=== PATIENT | male | born 1940 | race Caucasian/White ===

== ENCOUNTER 2018-04-23 10:05 | Inpatient (IN) | payer OTHER ==
[2018-04-23 12:34] VITALS: BMI 19.7
--- NOTE | 2018-04-23 16:45 | HP ---
"Admission ROS [facility] - [facility] Chief Complaint: Here for rehab. Last drink 1 week ago. Allergies/Adverse Reactions: Allergies Allergy/AdvReac Type Severity Reaction Status Date / Time No Known Allergies Allergy Verified 04/23/18 12:59 History of Present Illness: Alcohol use since age 35. Drinks 1/2 pint 1-2x/week. States I want to stop forever and I need help. Seen in [facility] and stopped drinking 1 week ago. Was sober sober for 20 years and restarted drinking 3 years ago. Detox in past. Denies hx of blackouts or seizures. Hx. HTN - did not take medication today. Search Terms: Noel Akash, 1940 Search Date: 04/23/2018 04:42:15 PM The Drug Utilization Report below displays all of the controlled substance prescriptions, if any, that your patient has filled in the last twelve months. The information displayed on this report is compiled from pharmacy submissions to the Department, and accurately reflects the information as submitted by the pharmacies. This report was requested by: Hilda Carmona | Reference #: [id number] There are no results for the search terms that you entered. Exam Limitations: No Limitations - Ebola screening Have you traveled outside of the country in the last 21 days: No Have you had contact with anyone from an Ebola affected area: No Have you been sick,other than usual withdrawal symptoms: No Do you have a fever: No - Review of Systems Constitutional: No Symptoms Reported EENT: reports: No Symptoms Reported, Blurred Vision (Needs reading glasses.) Respiratory: reports: No Symptoms reported Cardiac: reports: No Symptoms Reported GI: reports: No Symptoms Reported : reports: No Symptoms Reported Musculoskeletal: reports: No Symptoms Reported Integumentary: reports: No Symptoms Reported Neuro: reports: No Symptoms reported Endocrine: reports: No Symptoms Reported Hematology: reports: No Symptoms Reported Psychiatric: reports: Judgement Intact, Mood/Affect Appropiate, other (Oriented to month and year. Unsure of date.) Patient History - PPD History Previous Implant?: Yes Documented Results: Negative w/o proof Implanted On Prior [facility] Admission?: No PPD to be Administered?: Yes - Smoking Cessation Smoking history: Never smoked Hx Chewing Tobacco Use: No Initiated information on smoking cessation: No - Substance & Tx. History Hx Alcohol Use: Yes Hx Substance Use: Yes Substance Use Type: Alcohol Hx Substance Use Treatment: Yes (detox) - Substances Abused Alcohol Route: Oral Frequency: 1-2 times per week Amount used: 1/2 [place] Age of first use: 35 Date of Last Use: 04/16/18 Admission Physical Exam [facility] - Vital Signs Vital Signs: Vital Signs - 24 hr 04/23/18 12:29 Temperature 96.4 F L Pulse Rate 64 Respiratory 18 Rate Blood Pressure 183/77 - Physical General Appearance: Yes: No Apparent Distress, Appropriately Dressed HEENTM: Yes: EOMI, Hearing grossly Normal, Normocephalic, Normal Voice, JENNY Respiratory: Yes: Chest Non-Tender, Lungs Clear, Normal Breath Sounds, No Respiratory Distress Neck: Yes: No masses,lesions,Nodules, Supple Breast: Yes: Breast Exam Deferred Cardiology: Yes: Regular Rhythm, Regular Rate, S1, S2 Abdominal: Yes: Normal Bowel Sounds, Non Tender, Flat, Soft Genitourinary: Yes: Within Normal Limits Back: Yes: Normal Inspection Extremities: Yes: Normal Capillary Refill, Normal Inspection, Normal Range of Motion, Non-Tender, Tremors (Mild tremors of hands upon extension) Neurological: Yes: java consultant II-XII NML intact, Alert, Motor Strength 5/5, Normal Mood /Affect Integumentary: Yes: Normal Color, Dry (Dry mucous membranes. Decreased skin turgor.), Warm Lymphatic: Yes: Within Normal Limits - Diagnostic (1) Alcohol dependence in remission Current Visit: Yes Status: Acute (2) Hypertension Current Visit: Yes Status: Acute Qualifiers: Hypertension type: essential hypertension Qualified Code(s): I10 - Essential (primary) hypertension (3) Dehydration Current Visit: Yes Status: Acute Cleared for Admission [facility] - Detox or Rehab Claeared for Rehab Admission: Yes [facility] Breath Alcohol Content Breath Alcohol Content: 0 Urine Drug Screen - Results Drug Screen Negative: Yes Inpatient Rehab Admission - Initial Determination Are CD services needed?: Yes Free of communicable disease: Yes Not in need of hospitalization: Yes - Rehab Admission Criteria Previous failed treatment: Yes Poor recovery environment: Yes Comorbidities: No Lacks judgement: No Patient is meeting Inpatient Rehab admission criteria:: Yes"
[2018-04-23] MEDS ORDERED: IBUPROFEN 400 MG TABLET (FP) PO PRN (17:04)
[2018-04-23] MEDS ORDERED: hydrOXYzine PAMOATE 25 MG CAPSULE (FP) PO PRN (17:04)
[2018-04-23] MEDS ORDERED: guaiFENesin/D-METHORPHAN HB 10 ML UNIT-DOSE CUPS PO PRN (17:04)
[2018-04-23] MEDS ORDERED: MENTHOL/PHENOL 1 EACH UD MM PRN (17:04)
[2018-04-23] MEDS ORDERED: MAGNESIUM CITRATE 300 ML BOTTLE PO PRN (17:04)
[2018-04-23] MEDS ORDERED: LOPERAMIDE HCL 2 MG CAPSULE PO PRN (17:04)
[2018-04-23] MEDS ORDERED: ACETAMINOPHEN 325 MG TABLET (FP) PO PRN (17:04)
[2018-04-23] MEDS ORDERED: MAG HYDROX/AL HYDROX/SIMETH 30 ML UNIT-DOSE CUP PO PRN (17:04)
[2018-04-23] MEDS ORDERED: MAGNESIUM HYDROX 2400MG/30ML ORAL SUSPENSION 30 ML CUP PO PRN (17:04)
[2018-04-23] MEDS ORDERED: P-EPHED 60MG/TRIPROLIDI 2.5MG TABLET PO PRN (17:04)
[2018-04-23] MEDS ORDERED: cloNIDine HCL 0.1 MG TABLET PO ONE (18:00)
[2018-04-23] MEDS ORDERED: TUBERCULIN PPD 5 TU/0.1ML VIAL ID ONE (19:33)
[2018-04-23] MEDS: THIAMINE HCL 100 MG TABLET (FP) PO SCH (21:30)
[2018-04-24 00:08] LABS: URINE APPEARANCE CLEAR; URINE BILIRUBIN NEGATIVE (<2.0 mg/dL); URINE COLOR YELLOW; URINE GLUCOSE (UA) NEGATIVE (NEGATIVE); URINE KETONE 1+ (NEGATIVE); URINE LEUK ESTERASE NEGATIVE (NEGATIVE); URINE NITRITE NEGATIVE (NEGATIVE); URINE PROTEIN NEGATIVE (NEGATIVE)
--- NOTE | 2018-04-24 09:59 | EKG ---
Test Reason : Blood Pressure : / mmHG Vent. Rate : 060 BPM Atrial Rate : 060 BPM P-R Int : 152 ms QRS Dur : 090 ms QT Int : 428 ms P-R-T Axes : 074 000 057 degrees QTc Int : 428 ms NORMAL SINUS RHYTHM POSSIBLE LEFT ATRIAL ENLARGEMENT NO PREVIOUS ECGS AVAILABLE Confirmed by MIKO OLIVIA MD ([id number]) on 04/24/2018 9:59:18 AM Referred By: Confirmed By:MIKO OLIVIA MD
[2018-04-24 10:03] LABS: HEMOGLOBIN 13.2 GM/dL (11.7-16.9); MCH 28.8 pg (25.7-33.7); MCHC 32.3 g/dl (32.0-35.9); MEAN CELL VOLUME 89.3 fl (80-96); MEAN PLT VOLUME 9.2 fl (7.5-11.1); PLATELET COUNT 242 K/MM3 (134-434); RDW 15.1 % (11.9-15.9)
[2018-04-24] MEDS: LISINOPRIL 10 MG TABLET (FP) PO SCH (10:09)
[2018-04-24] MEDS: PRENATAL VITAMINS W/ FOLIC ACID TABLET (FP) PO SCH (10:09)
[2018-04-24] MEDS: ATENOLOL 25 MG TABLET (FP) PO SCH (10:09)
[2018-04-24 10:21] LABS: ALBUMIN 3.9 g/dl (3.4-5.0); ANION GAP 9 MMOL/L (8-16); BLOOD UREA NITROGEN 11 mg/dL (7-18); CHLORIDE 101 mmol/L (98-107); CO2 29 mmol/L (21-32); GLUCOSE,RANDOM 236 mg/dL (74-106); POTASSIUM 4.6 mmol/L (3.5-5.1); SGPT/ALT 39 U/L (12-78); SODIUM 139 mmol/L (136-145)
[2018-04-24 10:23] LABS: ALK PHOS 76 U/L (45-117); BILIRUBIN,TOTAL 1.6 mg/dL (0.2-1.0); SGOT/AST 50 U/L (15-37); TOT PROT 7.3 g/dl (6.4-8.2)
--- NOTE | 2018-04-24 15:05 | HP ---
Psychiatrist Admission - Data Date of interview: 04/24/18 Admission source: [facility] Identifying data: This is the first admission to [address] [place] [address] this 78 years old H male ,resides alone,supported by [facility]. Medical History: Significant for HTN,H/O bleeding ulcer. Psychiatric History: Denies previous psychiatric history,denies history of psychiatric hospitalizaions,no suicidal history. Physical/Sexual Abuse/Trauma History: denies Vital Signs: Vital Signs - 24 hr 04/24/18 04/24/18 04/24/18 00:30 03:30 07:05 Temperature 97.6 F Pulse Rate 65 Respiratory 18 18 18 Rate Blood Pressure 157/86 Allergies/Adverse Reactions: Allergies Allergy/AdvReac Type Severity Reaction Status Date / Time No Known Allergies Allergy Verified 04/23/18 12:59 Date of last physical exam: 04/23/18 Concur with the findings of this exam: Yes - Substance Abuse/Tx History Hx Alcohol Use: Yes (reports drinking since 18 yo ) Hx Substance Use: No Substance Use Type: Alcohol Hx Substance Use Treatment: Yes (this is his first inpatient rehabilitation treatment) Mental Status Exam - Mental Status Exam Alert and Oriented to: Time, Place, Person Cognitive Function: Grossly Intact Patient Appearance: Well Groomed Mood: Euthymic Affect: Mood Congruent Patient Behavior: Appropriate, Cooperative Speech Pattern: Clear Voice Loudness: Normal Thought Process: Goal Oriented Thought Disorder: Not Present Hallucinations: Denies Suicidal Ideation: Denies Homicidal Ideation: Denies Insight/Judgement: Fair Sleep: Fair Appetite: Good Muscle strength/Tone: Normal Gait/Station: Normal Psychiatric Findings - Problem List ([place] 1, 2,3) (1) Hypertension Current Visit: Yes Status: Chronic Qualifiers: Hypertension type: essential hypertension Qualified Code(s): I10 - Essential (primary) hypertension (2) Alcohol dependence Current Visit: Yes Status: Chronic - Initial Treatment Plan Initial Treatment Plan: Will monitor progress.
[2018-04-24] MEDS: THIAMINE HCL 100 MG TABLET (FP) PO SCH (22:28)
[2018-04-25] MEDS: LISINOPRIL 10 MG TABLET (FP) PO SCH (09:50)
[2018-04-25] MEDS: PRENATAL VITAMINS W/ FOLIC ACID TABLET (FP) PO SCH (09:50)
[2018-04-25] MEDS: ATENOLOL 25 MG TABLET (FP) PO SCH (09:50)
--- NOTE | 2018-04-25 13:00 | PN ---
[facility] Progress Note Note: Vital Signs Temperature 97.5 F L 04/25/18 07:04 Pulse Rate 59 L 04/25/18 10:00 Respiratory Rate 18 04/25/18 07:04 Blood Pressure 125/68 04/25/18 10:00 O2 Sat by Pulse Oximetry (%) Laboratory Last Values WBC 5.0 K/mm3 (4.0-10.0) 04/24/18 06:00 RBC 4.60 M/mm3 (4.00-5.60) 04/24/18 06:00 Hgb 13.2 GM/dL (11.7-16.9) 04/24/18 06:00 Hct 41.0 % (35.4-49) 04/24/18 06:00 MCV 89.3 fl (80-96) 04/24/18 06:00 MCH 28.8 pg (25.7-33.7) 04/24/18 06:00 MCHC 32.3 g/dl (32.0-35.9) 04/24/18 06:00 RDW 15.1 % (11.9-15.9) 04/24/18 06:00 Plt Count 242 K/MM3 (134-434) 04/24/18 06:00 MPV 9.2 fl (7.5-11.1) 04/24/18 06:00 Sodium 139 mmol/L (136-145) 04/24/18 06:00 Potassium 4.6 mmol/L (3.5-5.1) 04/24/18 06:00 Chloride 101 mmol/L (98-107) 04/24/18 06:00 Carbon Dioxide 29 mmol/L (21-32) 04/24/18 06:00 Anion Gap 9 MMOL/L (8-16) 04/24/18 06:00 BUN 11 mg/dL (7-18) 04/24/18 06:00 Creatinine 1.0 mg/dL (0.7-1.3) 04/24/18 06:00 Creat Clearance w eGFR > 60 (>60) 04/24/18 06:00 Random Glucose 236 mg/dL (74-106) H 04/24/18 06:00 Calcium 9.0 mg/dL (8.5-10.1) 04/24/18 06:00 Total Bilirubin 1.6 mg/dL (0.2-1.0) H 04/24/18 06:00 AST 50 U/L (15-37) H 04/24/18 06:00 ALT 39 U/L (12-78) 04/24/18 06:00 Alkaline Phosphatase 76 U/L (45-117) 04/24/18 06:00 Total Protein 7.3 g/dl (6.4-8.2) 04/24/18 06:00 Albumin 3.9 g/dl (3.4-5.0) 04/24/18 06:00 Urine Color Yellow 04/23/18 23:06 Urine Appearance Clear 04/23/18 23:06 Urine pH 6.0 (5.0-8.0) 04/23/18 23:06 Ur Specific [place] 1.014 (1.001-1.035) 04/23/18 23:06 Urine Protein Negative (NEGATIVE) 04/23/18 23:06 Urine Glucose (UA) Negative (NEGATIVE) 04/23/18 23:06 Urine Ketones 1+ (NEGATIVE) H 04/23/18 23:06 Urine Blood Negative (NEGATIVE) 04/23/18 23:06 Urine Nitrite Negative (NEGATIVE) 04/23/18 23:06 Urine Bilirubin Negative (<2.0 mg/dL) 04/23/18 23:06 Urine Urobilinogen 2.0 mg/dL (0.2-1.0) 04/23/18 23:06 Ur Leukocyte Esterase Negative (NEGATIVE) 04/23/18 23:06 RPR Titer Nonreactive (NONREACTIVE) 04/24/18 06:00 elevated glucose change ensure tid to glucerna tid daily bgm NCS and low sodium diet increase fluids continue to monitor
[2018-04-25] MEDS: THIAMINE HCL 100 MG TABLET (FP) PO SCH (22:06)
[2018-04-25] MEDS: MELATONIN 5 MG TABLETS PO PRN (22:06)
[2018-04-26] MEDS: LISINOPRIL 10 MG TABLET (FP) PO SCH (09:52)
[2018-04-26] MEDS: PRENATAL VITAMINS W/ FOLIC ACID TABLET (FP) PO SCH (09:52)
[2018-04-26] MEDS: ATENOLOL 25 MG TABLET (FP) PO SCH (09:53)
[2018-04-26] MEDS: THIAMINE HCL 100 MG TABLET (FP) PO SCH (21:34)
[2018-04-27] MEDS: LISINOPRIL 10 MG TABLET (FP) PO SCH (10:06)
[2018-04-27] MEDS: PRENATAL VITAMINS W/ FOLIC ACID TABLET (FP) PO SCH (10:06)
[2018-04-27] MEDS: ATENOLOL 25 MG TABLET (FP) PO SCH (10:07)
[2018-04-27] MEDS: THIAMINE HCL 100 MG TABLET (FP) PO SCH (22:17)
[2018-04-28] MEDS: ATENOLOL 25 MG TABLET (FP) PO SCH (10:25)
[2018-04-28] MEDS: LISINOPRIL 10 MG TABLET (FP) PO SCH (10:25)
[2018-04-28] MEDS: PRENATAL VITAMINS W/ FOLIC ACID TABLET (FP) PO SCH (10:25)
[2018-04-28] MEDS: MELATONIN 5 MG TABLETS PO PRN (21:58)
[2018-04-28] MEDS: THIAMINE HCL 100 MG TABLET (FP) PO SCH (21:58)
[2018-04-29] MEDS: PRENATAL VITAMINS W/ FOLIC ACID TABLET (FP) PO SCH (10:06)
[2018-04-29] MEDS: LISINOPRIL 10 MG TABLET (FP) PO SCH (10:06)
[2018-04-29] MEDS: ATENOLOL 25 MG TABLET (FP) PO SCH (10:06)
[2018-04-29] MEDS: THIAMINE HCL 100 MG TABLET (FP) PO SCH (22:35)
[2018-04-30] MEDS: ATENOLOL 25 MG TABLET (FP) PO SCH (10:04)
[2018-04-30] MEDS: PRENATAL VITAMINS W/ FOLIC ACID TABLET (FP) PO SCH (10:04)
[2018-04-30] MEDS: LISINOPRIL 10 MG TABLET (FP) PO SCH (10:04)
[2018-04-30] MEDS: THIAMINE HCL 100 MG TABLET (FP) PO SCH (21:48)
[2018-05-01] MEDS: LISINOPRIL 10 MG TABLET (FP) PO SCH (10:08)
[2018-05-01] MEDS: ATENOLOL 25 MG TABLET (FP) PO SCH (10:08)
[2018-05-01] MEDS: PRENATAL VITAMINS W/ FOLIC ACID TABLET (FP) PO SCH (10:08)
[2018-05-01] MEDS: THIAMINE HCL 100 MG TABLET (FP) PO SCH (22:09)
[2018-05-02] MEDS: ATENOLOL 25 MG TABLET (FP) PO SCH (10:03)
[2018-05-02] MEDS: PRENATAL VITAMINS W/ FOLIC ACID TABLET (FP) PO SCH (10:03)
[2018-05-02] MEDS: LISINOPRIL 10 MG TABLET (FP) PO SCH (10:03)
[2018-05-02] MEDS: THIAMINE HCL 100 MG TABLET (FP) PO SCH (21:46)
[2018-05-03] MEDS: LISINOPRIL 10 MG TABLET (FP) PO SCH (09:50)
[2018-05-03] MEDS: ATENOLOL 25 MG TABLET (FP) PO SCH (09:50)
[2018-05-03] MEDS: PRENATAL VITAMINS W/ FOLIC ACID TABLET (FP) PO SCH (09:50)
[2018-05-03] MEDS: THIAMINE HCL 100 MG TABLET (FP) PO SCH (22:09)
[2018-05-04] MEDS: LISINOPRIL 10 MG TABLET (FP) PO SCH (09:46)
[2018-05-04] MEDS: ATENOLOL 25 MG TABLET (FP) PO SCH (09:46)
[2018-05-04] MEDS: PRENATAL VITAMINS W/ FOLIC ACID TABLET (FP) PO SCH (09:46)
[2018-05-04] MEDS: MELATONIN 5 MG TABLETS PO PRN (21:51)
[2018-05-04] MEDS: THIAMINE HCL 100 MG TABLET (FP) PO SCH (21:51)
[2018-05-05] MEDS: PRENATAL VITAMINS W/ FOLIC ACID TABLET (FP) PO SCH (09:52)
[2018-05-05] MEDS: ATENOLOL 25 MG TABLET (FP) PO SCH (09:52)
[2018-05-05] MEDS: LISINOPRIL 10 MG TABLET (FP) PO SCH (09:52)
[2018-05-05] MEDS: THIAMINE HCL 100 MG TABLET (FP) PO SCH (21:25)
[2018-05-05] MEDS: MELATONIN 5 MG TABLETS PO PRN (21:25)
[2018-05-06] MEDS: ATENOLOL 25 MG TABLET (FP) PO SCH (09:30)
[2018-05-06] MEDS: LISINOPRIL 10 MG TABLET (FP) PO SCH (09:30)
[2018-05-06] MEDS: PRENATAL VITAMINS W/ FOLIC ACID TABLET (FP) PO SCH (09:31)
[2018-05-06] MEDS: THIAMINE HCL 100 MG TABLET (FP) PO SCH (22:04)
[2018-05-06] MEDS: MELATONIN 5 MG TABLETS PO PRN (22:04)
[2018-05-07] MEDS: LISINOPRIL 10 MG TABLET (FP) PO SCH (09:53)
[2018-05-07] MEDS: PRENATAL VITAMINS W/ FOLIC ACID TABLET (FP) PO SCH (09:53)
[2018-05-07] MEDS: ATENOLOL 25 MG TABLET (FP) PO SCH (09:53)
--- NOTE | 2018-05-07 15:12 | PN ---
Psychiatric Progress Note Vital Signs: Vital Signs Period Temp Pulse Resp BP Sys/Cantrell Pulse Ox Last 24 Hr 97.5 F 57-60 18-19 124-157/66-86 Date of Session: 05/07/18 Chief Complaint:: Discharge Note HPI: Patient addressing Alcohol Dependence ROS: HTN Current Medications: Active Medications Generic Name Dose Route Start Last Admin Trade Name Freq PRN Reason Stop Dose Admin Acetaminophen 650 mg 04/23/18 17:04 Tylenol - PO Q4H PRN FEVER Al Hydroxide/Mg Hydroxide 30 ml 04/23/18 17:04 Mylanta Oral Suspension - PO Q6H PRN DYSPEPSIA Atenolol 25 mg 04/24/18 10:00 05/07/18 09:53 Tenormin - PO 25 mg DAILY BECKY Administration Eucalyptus/Menthol/Phenol/Sorbitol 1 each 04/23/18 17:04 Cepastat Lozenge - MM Q4H PRN SORE THROAT Guaifenesin 10 ml 04/23/18 17:04 Robitussin Dm - PO Q6H PRN COUGH Hydroxyzine Pamoate 25 mg 04/23/18 17:04 Vistaril - PO Q4H PRN AGITATION Ibuprofen 400 mg 04/23/18 17:04 Motrin - PO Q6H PRN Pain level 4-6 Lisinopril 10 mg 04/24/18 10:00 05/07/18 09:53 Prinivil PO 10 mg DAILY BECKY Administration Loperamide HCl 4 mg 04/23/18 17:04 Imodium - PO Q6H PRN DIARRHEA Magnesium Citrate 300 ml 04/23/18 17:04 Citroma - PO Q48H PRN CONSTIPATION Magnesium Hydroxide 30 ml 04/23/18 17:04 Milk Of Magnesia - PO DAILY PRN CONSTIPATION Melatonin 5 mg 04/23/18 22:00 05/06/18 22:04 Melatonin PO 5 mg HS PRN Administration INSOMNIA Multivit/Folic Acid/Iron 1 tab 04/24/18 10:00 05/07/18 09:53 Vitamins ([facility]) - PO 1 tab DAILY BECKY Administration Pseudoephedrine/Triprolidine 1 combo 04/23/18 17:04 Actifed - PO TID PRN NASAL CONGESTION Thiamine HCl 100 mg 04/23/18 22:00 05/06/18 22:04 Vitamin B1 - PO 100 mg HS BECKY Administration Current Side Effect: No Lab tests ordered: Yes Lab tests reviewed: Yes Provider note:: Patient will complete this program on 05/08/18. He has met his treatment goals and vitor henriquez to address his issues in outpatient treatment at the [facility]. Told advertising copywriter that from his participation in this program, he has learned the importance of making meetings and have a sponsor. He is stable for discharge on 05/08/18 Total face to face time:: 35 Mental Status Exam - Mental Status Exam Alert and Oriented to: Time, Place, Person Cognitive Function: Fair Patient Appearance: Well Groomed Mood: Hopeful, Euthymic Affect: Appropriate Patient Behavior: Cooperative Speech Pattern: Clear Voice Loudness: Normal Thought Process: Intact, Goal Oriented Thought Disorder: Not Present Hallucinations: Denies Suicidal Ideation: Denies Homicidal Ideation: Denies Insight/Judgement: Fair Sleep: Fair Appetite: Good Muscle strength/Tone: Normal Gait/Station: Normal Psychiatric Treatment Plan - Problem List (1) Alcohol dependence Current Visit: Yes (2) Hypertension Current Visit: Yes Qualifiers: Hypertension type: essential hypertension Qualified Code(s): I10 - Essential (primary) hypertension Initial treatment plan: Patient will be discharged tomorrow and referred to the [facility] for [facility] treatment
--- NOTE | 2018-05-07 15:42 | PN ---
S Progress Note Note: Vital Signs Temperature 97.5 F L 05/07/18 06:34 Pulse Rate 60 05/07/18 10:00 Respiratory Rate 19 05/07/18 10:00 Blood Pressure 124/66 05/07/18 10:00 O2 Sat by Pulse Oximetry (%) Patient medically stable. Patient will complete this program on 05/08/18. Patient follow up with outpatient treatment at the [facility]. Patient to also follow up with primary care provider in 1 - 2 weeks.
[2018-05-07] MEDS: MELATONIN 5 MG TABLETS PO PRN (21:25)
[2018-05-07] MEDS: THIAMINE HCL 100 MG TABLET (FP) PO SCH (21:25)
[2018-05-08 06:46] VITALS: TEMP 97.3
[2018-05-08 10:04] VITALS: BP 157/84; PULSE 67
[2018-05-08] MEDS: LISINOPRIL 10 MG TABLET (FP) PO SCH (10:28)
[2018-05-08] MEDS: PRENATAL VITAMINS W/ FOLIC ACID TABLET (FP) PO SCH (10:28)
[2018-05-08] MEDS: ATENOLOL 25 MG TABLET (FP) PO SCH (10:29)
== END 2018-05-08 10:35 | disposition home or self-care (01) | DRG 895 ==
LOC: YASAS 10:05 → Y3W 17:34
PROVIDERS: ADMIT Psychiatry & Neurology Psychiatry; ATTEND Psychiatry & Neurology Psychiatry
PROC: HZ42ZZZ Group Counseling for Substance Abuse Treatment, Cognitive-Behavioral (ICD-10-PCS; principal; 2018-04-23)
DX: F10.20 Alcohol dependence, uncomplicated (principal); I10 Essential (primary) hypertension; E86.0 Dehydration
CPT/HCPCS: 36415; 80053; 81003; 82962; 85027; 86593; 93005; 93010; J0735

== ENCOUNTER 2019-01-28 09:35 | Inpatient (IN) | payer OTHER ==
[2019-01-28 10:23] VITALS: BMI 20.7
--- NOTE | 2019-01-28 11:32 | HP ---
CIWA Score - Admission Criteria [facility] Guidelines: Admission for Medically Managed Detox: Requires at least one of the followin. CIWA greater than 12 2. Seizures within the past 24 hours 3. Delirium tremens within the past 24 hours 4. Hallucinations within the past 24 hours 5. Acute intervention needed for co occurring medical disorder 6. Acute intervention needed for co occurring psychiatric disorder 7. Severe withdrawal that cannot be handled at a lower level of care (continued vomiting, continued diarrhea, abnormal vital signs) requiring intravenous medication and/or fluids 8. Admission ROS [facility] - HPI Chief Complaint: i need help to stop drinking alcohol Allergies/Adverse Reactions: Allergies Allergy/AdvReac Type Severity Reaction Status Date / Time No Known Allergies Allergy Verified 01/28/19 10:14 History of Present Illness: this 78 years old male with alcohol dependence,withdrawal symptom, seen in [facility] last night,receiving medication in [facility] history of hypertension longest sobriety 2 years plan for relocation after rehab history of bleeding peptic ulcer at age of 21 years Exam Limitations: No Limitations - Ebola screening Have you traveled outside of the country in the last 21 days: No (N) Have you had contact with anyone from an Ebola affected area: No Do you have a fever: No - Review of Systems Constitutional: No Symptoms Reported EENT: reports: Nose Congestion Respiratory: reports: No Symptoms reported GI: reports: No Symptoms Reported : reports: No Symptoms Reported Musculoskeletal: reports: No Symptoms Reported Neuro: reports: No Symptoms reported Endocrine: reports: No Symptoms Reported Hematology: reports: No Symptoms Reported Psychiatric: reports: No Sypmtoms Reported, Judgement Intact, Mood/Affect Appropiate, Orientated x3 Other Systems: Reviewed and Negative Patient History - Patient Medical History Hx Asthma: No Hx Chronic Obstructive Pulmonary Disease (COPD): No Hx Cancer: No Hx Cardiac Disorders: No Hx Congestive Heart Failure: No Hx Hypertension: Yes (on meds) Hx Pacemaker: No HX Cerebrovascular Accident: No Hx Seizures: No Hx Dementia: No Hx Diabetes: No Hx Gastrointestinal Disorders: No Hx Liver Disease: No Hx Genitourinary Disorders: No Hx Sexually Transmitted Disorders: No Hx Renal Disease (ESRD): No Hx Thyroid Disease: No Hx Human Immunodeficiency Virus (HIV): No (last 09/05 negative) Hx Hepatitis C: No Hx Depression: No Hx Suicide Attempt: No Hx Bipolar Disorder: No Hx Schizophrenia: No Other Medical History: no suicidal,no homicidal - Patient Surgical History Past Surgical History: Yes Hx Neurologic Surgery: No Hx Cataract Extraction: No Hx Cardiac Surgery: No Hx Lung Surgery: No Hx Breast Surgery: No Hx Breast Biopsy: No Hx Abdominal Surgery: No Hx Appendectomy: No Hx Cholecystectomy: No Hx Genitourinary Surgery: No Hx Section: No Hx Orthopedic Surgery: No Other Surgical History: bleding peptic ulcer at age of 21 years Anesthesia Reaction: No - PPD History Previous Implant?: Yes Documented Results: Negative w/proof Date: 04/26/18 PPD to be Administered?: No - Smoking Cessation Smoking history: Never smoked Hx Chewing Tobacco Use: No - Substance & Tx. History Hx Alcohol Use: Yes Hx Substance Use: No Substance Use Type: Alcohol Hx Substance Use Treatment: Yes ([facility] rehab 04/23/18 to 05/08/18) - Substances abused Alcohol Substance route: Oral Frequency: 1-2 times per week Amount used: 1/2 pint of vodka Age of first use: 26 Date of last use: 01/26/19 Family Disease History - Family Disease History Family Disease History: Diabetes: Father (), Mother () Admission Physical Exam S - Vital Signs Vital Signs: Vital Signs - 24 hr 01/28/19 01/28/19 10:09 10:36 Temperature 96.8 F L 96.8 F L Pulse Rate 63 63 Respiratory 16 16 Rate Blood Pressure 148/64 148/64 - Physical General Appearance: Yes: Within Normal Limits HEENTM: Yes: Normocephalic, JENNY, Pharynx Normal Respiratory: Yes: Lungs Clear, Normal Breath Sounds, No Respiratory Distress Neck: Yes: Within Normal Limits Breast: Yes: Within Normal Limits Cardiology: Yes: Within Normal Limits, Regular Rhythm, Regular Rate, S1, S2 Abdominal: Yes: Within Normal Limits, Normal Bowel Sounds, Flat, Soft, Surgical Scar (surgical scar right pramedian) Genitourinary: Yes: Within Normal Limits Back: Yes: Within Normal Limits Musculoskeletal: Yes: Within Normal Limits Extremities: Yes: Within Normal Limits Neurological: Yes: carbonizer II-XII NML intact, Fully Oriented, Alert, Motor Strength 5/5 Integumentary: Yes: Within Normal Limits Lymphatic: Yes: Within Normal Limits - Diagnostic (1) Alcohol dependence Current Visit: No Status: Acute (2) Hypertension Current Visit: No Status: Chronic Qualifiers: Hypertension type: essential hypertension Qualified Code(s): I10 - Essential (primary) hypertension (3) H/O abdominal surgery Current Visit: Yes Status: Acute Cleared for Admission [facility] - Detox or Rehab Claeared for Rehab Admission: Yes Breathalyzer - Breathalyzer Breathalyzer: 0 Urine Drug Screen - Test Device Lot number: [id number] Expiration date: 10/15/20 - Results Drug screen NEGATIVE: No Urine drug screen results: BZO-Benzodiazepines Inpatient Rehab Admission - Rehab Decision to Admit Inpatient rehab admission?: Yes - Initial Determination Are CD services needed?: Yes Free of communicable disease: Yes Not in need of hospitalization: Yes - Rehab Admission Criteria Previous failed treatment: Yes Poor recovery environment: Yes Comorbidities: Yes Lacks judgement: No Patient is meeting Inpatient Rehab admission criteria:: Yes
[2019-01-28] MEDS ORDERED: MAGNESIUM CITRATE 300 ML BOTTLE PO PRN (11:50)
[2019-01-28] MEDS ORDERED: MAGNESIUM HYDROX 2400MG/30ML ORAL SUSPENSION 30 ML CUP PO PRN (11:50)
[2019-01-28] MEDS ORDERED: MENTHOL/PHENOL 1 EACH UD MM PRN (11:50)
[2019-01-28] MEDS ORDERED: MAG HYDROX/AL HYDROX/SIMETH 30 ML UNIT-DOSE CUP PO PRN (11:50)
[2019-01-28] MEDS ORDERED: LOPERAMIDE HCL 2 MG CAPSULE PO PRN (11:50)
[2019-01-28] MEDS ORDERED: IBUPROFEN 400 MG TABLET (FP) PO PRN (11:50)
[2019-01-28] MEDS ORDERED: ACETAMINOPHEN 325 MG TABLET (FP) PO PRN (11:50)
[2019-01-28] MEDS ORDERED: hydrOXYzine PAMOATE 25 MG CAPSULE (FP) PO PRN (11:50)
[2019-01-28] MEDS ORDERED: P-EPHED 60MG/TRIPROLIDI 2.5MG TABLET PO PRN (11:50)
[2019-01-28] MEDS ORDERED: guaiFENesin 200 MG/10 ML 10 ML UNIT-DOSE CUPS PO PRN (11:50)
[2019-01-28 14:19] LABS: ALBUMIN 3.8 g/dl (3.4-5.0); BILIRUBIN,TOTAL 0.3 mg/dL (0.2-1); BLOOD UREA NITROGEN 19.4 mg/dL (7-18); CREATININE 0.9 mg/dL (0.55-1.3); POTASSIUM 4.3 mmol/L (3.5-5.1)
[2019-01-28 14:42] LABS: HEMATOCRIT 37.7 % (35.4-49); HEMOGLOBIN 12.4 GM/dL (11.7-16.9); MCH 30.4 pg (25.7-33.7); MEAN CELL VOLUME 92.1 fl (80-96); MEAN PLT VOLUME 9.1 fl (7.5-11.1); RDW 14.1 % (11.9-15.9); WHITE BLOOD COUNT 5.6 K/mm3 (4.0-10.0)
[2019-01-28 15:05] LABS: PLATELET COUNT 212 K/MM3 (134-434)
[2019-01-28 18:06] LABS: PH,URINE 5.5 (5.0-8.0); URINE APPEARANCE CLEAR; URINE BILIRUBIN NEGATIVE (NEGATIVE); URINE COLOR YELLOW; URINE GLUCOSE (UA) NEGATIVE (NEGATIVE); URINE KETONE NEGATIVE (NEGATIVE); URINE LEUK ESTERASE NEGATIVE (NEGATIVE); URINE NITRITE NEGATIVE (NEGATIVE); URINE PROTEIN NEGATIVE (NEGATIVE); URINE UROBILINOGEN 0.2 mg/dL (0.2-1.0)
[2019-01-28] MEDS: THIAMINE HCL 100 MG TABLET (FP) PO SCH (21:58)
[2019-01-29] MEDS: PRENATAL VITAMINS W/ FOLIC ACID TABLET (FP) PO SCH (10:20)
[2019-01-29] MEDS ORDERED: PT OWN MED DRAWER 7, Y5N ONE (20:28)
[2019-01-29] MEDS: THIAMINE HCL 100 MG TABLET (FP) PO SCH (21:34)
[2019-01-30] MEDS ORDERED: PT OWN MED DRAWER 7, Y5N ONE (08:32)
[2019-01-30] MEDS: LISINOPRIL 10 MG TABLET (FP) PO SCH (09:14)
[2019-01-30] MEDS: ATENOLOL 25 MG TABLET (FP) PO SCH (09:14)
[2019-01-30] MEDS: PRENATAL VITAMINS W/ FOLIC ACID TABLET (FP) PO SCH (09:14)
[2019-01-30] MEDS: THIAMINE HCL 100 MG TABLET (FP) PO SCH (21:33)
[2019-01-30] MEDS: MELATONIN 5 MG TABLETS PO PRN (21:33)
[2019-01-31] MEDS ORDERED: PT OWN MED DRAWER 7, Y5N ONE (08:29)
[2019-01-31] MEDS: LISINOPRIL 10 MG TABLET (FP) PO SCH (09:29)
[2019-01-31] MEDS: PRENATAL VITAMINS W/ FOLIC ACID TABLET (FP) PO SCH (09:29)
[2019-01-31] MEDS: ATENOLOL 25 MG TABLET (FP) PO SCH (09:29)
[2019-01-31] MEDS: THIAMINE HCL 100 MG TABLET (FP) PO SCH (21:24)
[2019-02-01] MEDS ORDERED: PT OWN MED DRAWER 7, Y5N ONE (08:48)
[2019-02-01] MEDS: PRENATAL VITAMINS W/ FOLIC ACID TABLET (FP) PO SCH (09:53)
[2019-02-01] MEDS: LISINOPRIL 10 MG TABLET (FP) PO SCH (09:53)
[2019-02-01] MEDS: ATENOLOL 25 MG TABLET (FP) PO SCH (09:53)
--- NOTE | 2019-02-01 11:10 | PN ---
[facility] Progress Note Note: PATIENT SEEN FOR ELEVATED BP. DENIES HEADACHE, CHEST PAIN AND SOB AT THIS TIME. CURRENTLY ON ATENOLOL AND LISINOPRIL FOR HTN. Laboratory Tests 01/28/19 01/28/19 01/28/19 12:00 12:00 12:00 WBC 5.6 RBC 4.10 Hgb 12.4 Hct 37.7 MCV 92.1 MCH 30.4 MCHC 33.0 RDW 14.1 Plt Count 212 MPV 9.1 Sodium 143 Potassium 4.3 Chloride 109 H Carbon Dioxide 31 Anion Gap 3 L BUN 19.4 H Creatinine 0.9 Est GFR (CKD-EPI)AfAm 94.48 Est GFR (CKD-EPI)NonAf 81.52 Random Glucose 111 H Calcium 9.0 Total Bilirubin 0.3 AST 30 ALT 31 Alkaline Phosphatase 65 Total Protein 7.0 Albumin 3.8 Urine Color Urine Appearance Urine pH Ur Specific [place] Urine Protein Urine Glucose (UA) Urine Ketones Urine Blood Urine Nitrite Urine Bilirubin Urine Urobilinogen Ur Leukocyte Esterase RPR Titer Nonreactive 01/28/19 13:00 WBC RBC Hgb Hct MCV MCH MCHC RDW Plt Count MPV Sodium Potassium Chloride Carbon Dioxide Anion Gap BUN Creatinine Est GFR (CKD-EPI)AfAm Est GFR (CKD-EPI)NonAf Random Glucose Calcium Total Bilirubin AST ALT Alkaline Phosphatase Total Protein Albumin Urine Color Yellow Urine Appearance Clear Urine pH 5.5 Ur Specific [place] 1.013 Urine Protein Negative Urine Glucose (UA) Negative Urine Ketones Negative Urine Blood Negative Urine Nitrite Negative Urine Bilirubin Negative Urine Urobilinogen 0.2 Ur Leukocyte Esterase Negative RPR Titer Vital Signs Temperature 98.1 F 02/01/19 06:48 Pulse Rate 65 02/01/19 09:30 Respiratory Rate 18 02/01/19 09:30 Blood Pressure 158/73 02/01/19 09:30 O2 Sat by Pulse Oximetry (%) PE: ALERT AND ORIENTED X 3 SKIN WARM AND DRY +PERRLA,EOMS INTACT BL CAR S1S2 RESP CTA BL EXT FULL ROM, NO VISIBLE EDEMA A/P: HX OF HTN ELEVATED BP WILL INCREASE LISINOPRIL TO 20MG DAILY JB DIET MONITOR CLINICALLY
[2019-02-01] MEDS: THIAMINE HCL 100 MG TABLET (FP) PO SCH (21:34)
[2019-02-02] MEDS: PRENATAL VITAMINS W/ FOLIC ACID TABLET (FP) PO SCH (09:39)
[2019-02-02] MEDS: ATENOLOL 25 MG TABLET (FP) PO SCH (09:39)
[2019-02-02] MEDS: LISINOPRIL 20 MG TABLET (FP) PO SCH (09:40)
[2019-02-02] MEDS: THIAMINE HCL 100 MG TABLET (FP) PO SCH (21:25)
[2019-02-03] MEDS: LISINOPRIL 20 MG TABLET (FP) PO SCH (10:11)
[2019-02-03] MEDS: PRENATAL VITAMINS W/ FOLIC ACID TABLET (FP) PO SCH (10:11)
[2019-02-03] MEDS: ATENOLOL 25 MG TABLET (FP) PO SCH (10:11)
[2019-02-03] MEDS: THIAMINE HCL 100 MG TABLET (FP) PO SCH (21:24)
[2019-02-03] MEDS: MELATONIN 5 MG TABLETS PO PRN (21:25)
[2019-02-04] MEDS: ATENOLOL 25 MG TABLET (FP) PO SCH (10:19)
[2019-02-04] MEDS: LISINOPRIL 20 MG TABLET (FP) PO SCH (10:19)
[2019-02-04] MEDS: PRENATAL VITAMINS W/ FOLIC ACID TABLET (FP) PO SCH (10:19)
[2019-02-04] MEDS: MELATONIN 5 MG TABLETS PO PRN (21:44)
[2019-02-04] MEDS: THIAMINE HCL 100 MG TABLET (FP) PO SCH (21:44)
[2019-02-05] MEDS: LISINOPRIL 20 MG TABLET (FP) PO SCH (09:59)
[2019-02-05] MEDS: ATENOLOL 25 MG TABLET (FP) PO SCH (09:59)
[2019-02-05] MEDS: PRENATAL VITAMINS W/ FOLIC ACID TABLET (FP) PO SCH (09:59)
[2019-02-05] MEDS: THIAMINE HCL 100 MG TABLET (FP) PO SCH (21:31)
[2019-02-06] MEDS ORDERED: cloNIDine HCL 0.1 MG TABLET PO ONE (06:29)
--- NOTE | 2019-02-06 06:32 | PN ---
[facility] Progress Note Note: Patient's blood pressure this morning is B/P 193/91. Patient is asymptomatic Vital Signs Temperature 97.6 F 02/06/19 06:29 Pulse Rate 57 L 02/06/19 06:29 Respiratory Rate 18 02/06/19 06:29 Blood Pressure 193/91 H 02/06/19 06:29 O2 Sat by Pulse Oximetry (%) Action: Clonidine 0.1mg tablet oral ordered stat
[2019-02-06] MEDS: ATENOLOL 25 MG TABLET (FP) PO SCH (10:13)
[2019-02-06] MEDS: PRENATAL VITAMINS W/ FOLIC ACID TABLET (FP) PO SCH (10:13)
[2019-02-06] MEDS: LISINOPRIL 20 MG TABLET (FP) PO SCH (10:13)
[2019-02-06] MEDS: THIAMINE HCL 100 MG TABLET (FP) PO SCH (21:25)
[2019-02-07] MEDS: ATENOLOL 25 MG TABLET (FP) PO SCH (10:15)
[2019-02-07] MEDS: LISINOPRIL 20 MG TABLET (FP) PO SCH (10:15)
[2019-02-07] MEDS: PRENATAL VITAMINS W/ FOLIC ACID TABLET (FP) PO SCH (10:15)
[2019-02-07] MEDS: THIAMINE HCL 100 MG TABLET (FP) PO SCH (21:40)
[2019-02-08] MEDS: PRENATAL VITAMINS W/ FOLIC ACID TABLET (FP) PO SCH (09:48)
[2019-02-08] MEDS: ATENOLOL 25 MG TABLET (FP) PO SCH (09:48)
--- NOTE | 2019-02-08 10:02 | PN ---
[facility] Progress Note Note: PATIENT SEEN FOR ELEVATED BP AND URINARY FREQUENCY MAINLY AT NIGHT. PATIENT HAS HX OF HTN BUT DENIES ANY PROSTATE PROBLEMS. PATIENT STATES HE WAKES UP AT NIGHT 3-4 TIMES AND ONLY URINATES A LITTLE AT A TIME WITH SOME DISCOMFORT. NO C/O CHEST PAIN, SOB AND/OR DIZZINESS. Laboratory Tests 01/28/19 01/28/19 01/28/19 12:00 12:00 12:00 WBC 5.6 RBC 4.10 Hgb 12.4 Hct 37.7 MCV 92.1 MCH 30.4 MCHC 33.0 RDW 14.1 Plt Count 212 MPV 9.1 Sodium 143 Potassium 4.3 Chloride 109 H Carbon Dioxide 31 Anion Gap 3 L BUN 19.4 H Creatinine 0.9 Est GFR (CKD-EPI)AfAm 94.48 Est GFR (CKD-EPI)NonAf 81.52 Random Glucose 111 H Calcium 9.0 Total Bilirubin 0.3 AST 30 ALT 31 Alkaline Phosphatase 65 Total Protein 7.0 Albumin 3.8 Urine Color Urine Appearance Urine pH Ur Specific [place] Urine Protein Urine Glucose (UA) Urine Ketones Urine Blood Urine Nitrite Urine Bilirubin Urine Urobilinogen Ur Leukocyte Esterase RPR Titer Nonreactive 01/28/19 13:00 WBC RBC Hgb Hct MCV MCH MCHC RDW Plt Count MPV Sodium Potassium Chloride Carbon Dioxide Anion Gap BUN Creatinine Est GFR (CKD-EPI)AfAm Est GFR (CKD-EPI)NonAf Random Glucose Calcium Total Bilirubin AST ALT Alkaline Phosphatase Total Protein Albumin Urine Color Yellow Urine Appearance Clear Urine pH 5.5 Ur Specific [place] 1.013 Urine Protein Negative Urine Glucose (UA) Negative Urine Ketones Negative Urine Blood Negative Urine Nitrite Negative Urine Bilirubin Negative Urine Urobilinogen 0.2 Ur Leukocyte Esterase Negative RPR Titer Vital Signs Temperature 96.7 F L 02/08/19 07:29 Pulse Rate 60 02/08/19 07:29 Respiratory Rate 17 02/08/19 07:29 Blood Pressure 172/83 H 02/08/19 07:29 O2 Sat by Pulse Oximetry (%) PE: ALERT AND ORIENTED X 3 SKIN WARM AND DRY +PERRLA, EOMS INTACT BL GI NT,ND NEG CVAT, NO PELVIC DISCOMFORT EXT FULL ROM, AMB AD SAYDA A/P; NOCTURIA HTN ELEVATED BP WILL INCREASE ATENOLOL TO 50MG DAILY STARTING TODAY CHECK UA START FLOMAX 0.4MG HS MONITOR CLINICALLY
[2019-02-08] MEDS: LISINOPRIL 20 MG TABLET (FP) PO SCH (10:29)
[2019-02-08] MEDS: ATENOLOL 50 MG TABLET (FP) PO SCH (10:53)
[2019-02-08] MEDS: THIAMINE HCL 100 MG TABLET (FP) PO SCH (21:24)
[2019-02-08] MEDS: TAMSULOSIN HCL 0.4 MG CAP PO SCH (21:24)
[2019-02-09] MEDS: PRENATAL VITAMINS W/ FOLIC ACID TABLET (FP) PO SCH (09:51)
[2019-02-09] MEDS: LISINOPRIL 20 MG TABLET (FP) PO SCH (09:51)
[2019-02-09] MEDS: ATENOLOL 50 MG TABLET (FP) PO SCH (09:52)
[2019-02-09 10:00] LABS: PH,URINE 6.5 (5.0-8.0); URINE APPEARANCE CLEAR; URINE BILIRUBIN NEGATIVE (NEGATIVE); URINE COLOR YELLOW; URINE GLUCOSE (UA) NEGATIVE (NEGATIVE); URINE KETONE NEGATIVE (NEGATIVE); URINE LEUK ESTERASE NEGATIVE (NEGATIVE); URINE NITRITE NEGATIVE (NEGATIVE); URINE PROTEIN NEGATIVE (NEGATIVE); URINE UROBILINOGEN 0.2 mg/dL (0.2-1.0)
[2019-02-09] MEDS: TAMSULOSIN HCL 0.4 MG CAP PO SCH (21:31)
[2019-02-09] MEDS: THIAMINE HCL 100 MG TABLET (FP) PO SCH (21:31)
[2019-02-09] MEDS: MELATONIN 5 MG TABLETS PO PRN (21:32)
[2019-02-10] MEDS: LISINOPRIL 20 MG TABLET (FP) PO SCH (10:41)
[2019-02-10] MEDS: ATENOLOL 50 MG TABLET (FP) PO SCH (10:41)
[2019-02-10] MEDS: PRENATAL VITAMINS W/ FOLIC ACID TABLET (FP) PO SCH (10:41)
[2019-02-10] MEDS ORDERED: PT OWN MED DRAWER 7, Y5N ONE (15:59)
[2019-02-10] MEDS: TAMSULOSIN HCL 0.4 MG CAP PO SCH (21:29)
[2019-02-10] MEDS: THIAMINE HCL 100 MG TABLET (FP) PO SCH (21:29)
[2019-02-10] MEDS: MELATONIN 5 MG TABLETS PO PRN (21:30)
[2019-02-11] MEDS ORDERED: PT OWN MED DRAWER 7, Y5N ONE (08:48)
[2019-02-11] MEDS: LISINOPRIL 20 MG TABLET (FP) PO SCH (10:00)
[2019-02-11] MEDS: ATENOLOL 50 MG TABLET (FP) PO SCH (10:00)
[2019-02-11] MEDS: PRENATAL VITAMINS W/ FOLIC ACID TABLET (FP) PO SCH (10:00)
--- NOTE | 2019-02-11 15:39 | PN ---
[facility] Progress Note (SOAP) Subjective: PT SCHEDULED FOR DISCHARGE TOMORROW. PT MET WITH COUNSELOR AND HAS BEEN REFERRED TO [facility] THE [place] FOR CD AFTERCARE. PT REPORTS HE HAS A PCP DR. PRESTON AT [facility]. COURTESY RX ELECTRONICALLY SENT TO PT[facility]S [facility] FOR MANAGER MONITORING AFTER DISCHARGE. PT IS ALERT O X 3. DENIES S/H/I. Objective: 02/11/19 15:39 Vital Signs - 24 hr 02/11/19 02/11/19 02/11/19 00:30 03:30 06:35 Temperature 97.5 F L Pulse Rate 62 Respiratory 18 18 18 Rate Blood Pressure 156/74 02/11/19 09:30 Temperature Pulse Rate 67 Respiratory 18 Rate Blood Pressure 134/68 Vital Signs (72 hours) 02/09/19 02/09/19 02/09/19 00:30 03:30 06:51 Temperature 97.5 F L Pulse Rate 65 Respiratory 18 18 18 Rate Blood Pressure 147/88 02/10/19 02/10/19 02/11/19 06:39 09:30 00:30 Temperature 97.5 F L Pulse Rate 57 L 59 L Respiratory 18 18 18 Rate Blood Pressure 150/83 132/72 02/11/19 02/11/19 02/11/19 03:30 06:35 09:30 Temperature 97.5 F L Pulse Rate 62 67 Respiratory 18 18 18 Rate Blood Pressure 156/74 134/68 Laboratory Tests 01/28/19 01/28/19 01/28/19 12:00 12:00 12:00 WBC 5.6 RBC 4.10 Hgb 12.4 Hct 37.7 MCV 92.1 MCH 30.4 MCHC 33.0 RDW 14.1 Plt Count 212 MPV 9.1 Sodium 143 Potassium 4.3 Chloride 109 H Carbon Dioxide 31 Anion Gap 3 L BUN 19.4 H Creatinine 0.9 Est GFR (CKD-EPI)AfAm 94.48 Est GFR (CKD-EPI)NonAf 81.52 Random Glucose 111 H Calcium 9.0 Total Bilirubin 0.3 AST 30 ALT 31 Alkaline Phosphatase 65 Total Protein 7.0 Albumin 3.8 Urine Color Urine Appearance Urine pH Ur Specific [place] Urine Protein Urine Glucose (UA) Urine Ketones Urine Blood Urine Nitrite Urine Bilirubin Urine Urobilinogen Ur Leukocyte Esterase RPR Titer Nonreactive 01/28/19 02/09/19 13:00 07:00 WBC RBC Hgb Hct MCV MCH MCHC RDW Plt Count MPV Sodium Potassium Chloride Carbon Dioxide Anion Gap BUN Creatinine Est GFR (CKD-EPI)AfAm Est GFR (CKD-EPI)NonAf Random Glucose Calcium Total Bilirubin AST ALT Alkaline Phosphatase Total Protein Albumin Urine Color Yellow Yellow Urine Appearance Clear Clear Urine pH 5.5 6.5 Ur Specific [place] 1.013 1.008 L Urine Protein Negative Negative Urine Glucose (UA) Negative Negative Urine Ketones Negative Negative Urine Blood Negative Negative Urine Nitrite Negative Negative Urine Bilirubin Negative Negative Urine Urobilinogen 0.2 0.2 Ur Leukocyte Esterase Negative Negative RPR Titer Home Medications Medication Instructions Recorded Atenolol [Tenormin -] 25 mg PO DAILY #14 tablet 02/11/19 Lisinopril [Prinivil] 10 mg PO DAILY #14 tablet 02/11/19 Tamsulosin HCl [Flomax -] 0.4 mg PO HS #14 cap.er.24h 02/11/19 Assessment: 02/11/19 15:39 NAD MEDICALLY STABLE Plan: FOLLOW UP WITH CD AFTERCARE RECOMMENDED. FOLLOW UP WITH PCP FOR MEDICAL MANAGEMENT WITHIN 1 WEEK AFTER DISCHARGE.
[2019-02-11] MEDS: THIAMINE HCL 100 MG TABLET (FP) PO SCH (21:22)
[2019-02-11] MEDS: TAMSULOSIN HCL 0.4 MG CAP PO SCH (21:22)
[2019-02-12 06:53] VITALS: BP 151/80; PULSE 57; TEMP 97.4
== END 2019-02-12 08:50 | disposition home or self-care (01) | DRG 895 ==
LOC: YASAS 09:35 → Y3W 11:44
PROVIDERS: ADMIT Surgery; ATTEND Surgery
PROC: HZ42ZZZ Group Counseling for Substance Abuse Treatment, Cognitive-Behavioral (ICD-10-PCS; principal; 2019-01-28)
DX: F10.20 Alcohol dependence, uncomplicated (principal); I10 Essential (primary) hypertension; R35.1 Nocturia
CPT/HCPCS: 36415; 80053; 81003; 85027; 86593; J0735